=== PATIENT | female | born 1970 | race Caucasian/White ===

== ENCOUNTER 2017-03-06 11:50 | Emergency (ER) | payer OTHER ==
[2017-03-06 12:09] VITALS: BP 145/95; TEMP 98.6; O2SAT 100
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
[2017-03-06 14:03] VITALS: PULSE 88; RESP 16
== END 2017-03-06 13:45 | disposition home or self-care (01) ==
LOC: C.ER 11:50
DX: S16.1XXA Strain of muscle, fascia and tendon at neck level, initial encounter (principal); V43.62XA Car passenger injured in collision with other type car in traffic accident, initial encounter; Y92.410 Unspecified street and highway as the place of occurrence of the external cause